=== PATIENT | female | born 1960 | race Caucasian/White ===

== ENCOUNTER → 2022-05-20 08:26 | Outpatient (BNVA) | payer MEDICARE, SELFPAY | PROVIDERS: PCP Family Medicine; Visit Provider Internal Medicine Rheumatology | DX: M19.041 Primary osteoarthritis, right hand (principal); M19.042 Primary osteoarthritis, left hand; Z79.899 Other long term (current) drug therapy; R21 Rash and other nonspecific skin eruption; M31.0 Hypersensitivity angiitis; Z11.59 Encounter for screening for other viral diseases; Z11.1 Encounter for screening for respiratory tuberculosis; M54.50 Low back pain, unspecified; M45.6 Ankylosing spondylitis lumbar region | CPT/HCPCS: 36415; 72100; 72202; 73130; 73630; 80076; 81001; 82306; 82565; 82570; 84156; 84550; 85025; 85651; 86036; 86140; 86431; 86480; 86704; 86803; 86812; 87340; 99204 ==

== ENCOUNTER → 2022-07-17 10:20 | Outpatient (BNVA) | payer MEDICARE, SELFPAY | PROVIDERS: PCP Family Medicine; Visit Provider Internal Medicine Rheumatology | DX: M05.79 Rheumatoid arthritis with rheumatoid factor of multiple sites without organ or systems involvement (principal); M19.041 Primary osteoarthritis, right hand; M19.042 Primary osteoarthritis, left hand; R21 Rash and other nonspecific skin eruption; Z79.52 Long term (current) use of systemic steroids | CPT/HCPCS: 72040; 99214 ==

== ENCOUNTER 2022-09-04 06:44 | Outpatient (CLI) | payer MEDICARE, SELFPAY ==
--- NOTE | 2022-09-04 07:15 | MR_ITS ---
WS: [id number] MRI CERVICAL SPINE NONCONTRAST HISTORY: M54.12 - Radiculopathy, cervical region COMPARISON: Cervical spine radiographs 07/17/2022 Technique: Multiplanar, multisequence noncontrast imaging of the cervical spine. Quality of this examination is limited secondary to patient motion despite repeated attempts at imagi ng. Straightening and slight reversal normal cervical lordosis. No marrow edema. Disc spaces are narrowed and desiccated with osteophytic ridging. Signal within the cervical cord is normal. Visualized posterior fossa is unremarkable. Craniocervical junction, C1 and C2 relationship, odontoid process and soft tissues are normal. C2-C3: Small central disc protrusion and facet arthritis. No stenosis. C3-C4: Osteophytic ridging and facet arthritis. Mild central and LEFT foraminal stenosis. C4-C5: Osteophytic ridging and facet arthritis. Mild central and bilateral foraminal stenosis. C5-C6: Osteophytic ridging and possible superimposed disc protrusions. Moderate facet joint arthritis . There is moderate central and foraminal stenosis. Evaluation is compromised by motion. C6-C7: Mild osteophytic ridging. There may be a component of the disc also contributing to the stenos is. Moderate central and bilateral foraminal stenosis, LEFT greater than RIGHT. C7-T1: Osteophytic ridging with mild bilateral foraminal stenosis, LEFT greater than RIGHT. Additional small RIGHT paracentral disc protrusions at T2-3 and T3-4 without central stenosis. MR/MR cervical spin wo con* [id number] IMPRESSION: 1. Quality of this examination is compromised by significant motion artifact. 2. Multilevel degenerative disc disease with facet arthritis. 3. Moderate central and bilateral foraminal stenosis at C5-6 and C6-7. Probabl y due to combination of osteophyte, facet and disc disease. 4. Mild central and LEFT foraminal stenosis at C3-4. 5. Mild central and bilateral foraminal stenosis at C4-5. 6. Mild bilateral foraminal stenosis, LEFT greater than RIGHT at C7-T1.
== END 2022-09-04 06:45 | disposition home or self-care (01) ==
LOC: RAD 06:46
PROVIDERS: PCP Family Medicine; Visit Provider Internal Medicine Rheumatology
DX: M54.12 Radiculopathy, cervical region (principal); M48.02 Spinal stenosis, cervical region
CPT/HCPCS: 72141

== ENCOUNTER → 2022-09-17 13:23 | Outpatient (BNVA) | payer MEDICARE, SELFPAY | PROVIDERS: PCP Family Medicine; Referring Provider Internal Medicine Rheumatology; Visit Provider Orthopaedic Surgery | DX: M47.22 Other spondylosis with radiculopathy, cervical region (principal); M50.23 Other cervical disc displacement, cervicothoracic region | CPT/HCPCS: 72040; 99204 ==

== ENCOUNTER 2022-10-03 12:23 | Outpatient (RCR) | payer MEDICARE, SELFPAY | END 2022-10-11 23:59 | disposition home or self-care (01) | LOC: SPT 12:23 | PROVIDERS: PCP Family Medicine; Visit Provider Orthopaedic Surgery | DX: M54.2 Cervicalgia (principal) | CPT/HCPCS: 97161 ==

== ENCOUNTER 2022-10-12 06:00 | Outpatient (RCR) | payer MEDICARE, SELFPAY | END 2022-11-10 23:59 | disposition home or self-care (01) | LOC: SPT 06:00 | PROVIDERS: PCP Family Medicine; Visit Provider Orthopaedic Surgery | DX: M54.2 Cervicalgia (principal) | CPT/HCPCS: 97110 ==

== ENCOUNTER → 2022-10-16 10:32 | Outpatient (BNVA) | payer MEDICARE, SELFPAY | PROVIDERS: PCP Family Medicine; Visit Provider Internal Medicine Rheumatology | DX: M05.79 Rheumatoid arthritis with rheumatoid factor of multiple sites without organ or systems involvement (principal); Z79.899 Other long term (current) drug therapy; R21 Rash and other nonspecific skin eruption; M19.041 Primary osteoarthritis, right hand; M19.042 Primary osteoarthritis, left hand; G62.9 Polyneuropathy, unspecified | CPT/HCPCS: 36415; 80076; 82565; 85025; 86140; 99214 ==

== ENCOUNTER → 2022-11-05 13:05 | Outpatient (BNVA) | payer MEDICARE, SELFPAY | PROVIDERS: PCP Family Medicine; Visit Provider Orthopaedic Surgery | DX: M47.22 Other spondylosis with radiculopathy, cervical region (principal) | CPT/HCPCS: 99213 ==

== ENCOUNTER → 2023-01-20 10:24 | Outpatient (BNVA) | payer MEDICARE, SELFPAY | PROVIDERS: PCP Family Medicine; Visit Provider Internal Medicine Rheumatology | DX: M05.79 Rheumatoid arthritis with rheumatoid factor of multiple sites without organ or systems involvement (principal); Z79.899 Other long term (current) drug therapy; R21 Rash and other nonspecific skin eruption; M19.041 Primary osteoarthritis, right hand; M19.042 Primary osteoarthritis, left hand; G62.9 Polyneuropathy, unspecified; Z79.52 Long term (current) use of systemic steroids | CPT/HCPCS: 36415; 80076; 82565; 85025; 86140; 99214 ==

== ENCOUNTER → 2023-04-10 15:02 | Outpatient (BNVA) | payer MEDICARE, SELFPAY | PROVIDERS: PCP Family Medicine; Visit Provider Orthopaedic Surgery | DX: M51.36 Other intervertebral disc degeneration, lumbar region (principal); M47.816 Spondylosis without myelopathy or radiculopathy, lumbar region; R93.5 Abnormal findings on diagnostic imaging of other abdominal regions, including retroperitoneum; M48.062 Spinal stenosis, lumbar region with neurogenic claudication | CPT/HCPCS: 72100; 99214 ==

== ENCOUNTER → 2023-04-21 11:01 | Outpatient (BNVA) | payer MEDICARE, SELFPAY | PROVIDERS: PCP Family Medicine; Visit Provider Internal Medicine Rheumatology | DX: M05.79 Rheumatoid arthritis with rheumatoid factor of multiple sites without organ or systems involvement (principal); Z79.899 Other long term (current) drug therapy; R21 Rash and other nonspecific skin eruption; M19.041 Primary osteoarthritis, right hand; M19.042 Primary osteoarthritis, left hand; G62.9 Polyneuropathy, unspecified | CPT/HCPCS: 99214 ==

== ENCOUNTER 2023-05-09 10:57 | Outpatient (CLI) | payer MEDICARE, SELFPAY ==
--- NOTE | 2023-05-09 11:45 | MR_ITS ---
WS: [id number] MRI LUMBAR SPINE NONCONTRAST TECHNIQUE: Sagittal T1, T2 and STIR imaging. Axial T1 and T2 imaging. CLINICAL INFORMATION: lumbar pain COMPARISON: None. FINDINGS: Partially visualized RIGHT abdominal mass likely a renal lesion only seen on the core maker helper imaging measur ing 12.3 x 11.8 cm. Recommend contrast-enhanced CT abdomen pelvis for further evaluation. Mild lumbar curve. No acute compression. Slight retrolisthesis L3 on L4. Disc space narrowing worse a t L4-5 with laminectomy defects. L1-L2: Normal. L2-L3: Mild annular bulging. Mild facet arthropathy. Spinal canal and foramen are patent. L3-L4: Slight retrolisthesis. Mild annular bulging with impingement on the RIGHT subarticular recess and traversing RIGHT L4 nerve root. Mild central canal stenosis. Mild RIGHT foraminal narrowing. Mode rate facet arthropathy with ligamentum flavum hypertrophy. L4-L5: Disc space narrowing. Mild disc bulge and osteophytic ridging. Laminectomy defects. Mild facet arthropathy. Spinal canal is patent. Foramen are patent. L5-S1: Slight retrolisthesis. Slight narrowing RIGHT subarticular recess. Spinal canal and foramen ar e patent. Mild facet arthropathy. Visualized pelvic bony structures: Normal. Paravertebral soft tissues: Normal. IMPRESSION: 1. Partially visualized RIGHT abdominal mass likely a renal lesion only seen on the core maker helper imaging m easuring 12.3 x 11.8 cm. Recommend contrast-enhanced CT abdomen pelvis for further evaluation. 2. Mild lumbar curve. No acute compression. 3. Slight retrolisthesis L3 on L4 with mild central canal stenosis. Impingement on the traversing RI GHT L4 nerve root in the subarticular recess. 4. Mild RIGHT L3-4 foraminal narrowing. 5. Prior laminectomy defects L4-5. 6. Narrowing RIGHT subarticular recess L5-S1 with slight impingement RIGHT S1 nerve root. 7. Small disc protrusions in the upper thoracic spine on the core maker helper imaging. These are more prominent at T2-T4.
== END 2023-05-09 10:58 | disposition home or self-care (01) ==
LOC: RAD 10:57
PROVIDERS: PCP Family Medicine; Visit Provider Orthopaedic Surgery
DX: M48.061 Spinal stenosis, lumbar region without neurogenic claudication (principal); R19.09 Other intra-abdominal and pelvic swelling, mass and lump; M43.16 Spondylolisthesis, lumbar region; M51.24 Other intervertebral disc displacement, thoracic region
CPT/HCPCS: 72148

== ENCOUNTER → 2023-05-13 09:57 | Outpatient (BNVA) | payer MEDICARE, SELFPAY | PROVIDERS: PCP Family Medicine; Visit Provider Orthopaedic Surgery | DX: Z01.812 Encounter for preprocedural laboratory examination (principal); M48.062 Spinal stenosis, lumbar region with neurogenic claudication | CPT/HCPCS: 36415; 80053; 81003; 85025; 99214 ==

== ENCOUNTER 2023-05-30 12:13 | Day surgery (SDC) | payer MEDICARE, SELFPAY ==
[2023-05-30] VITALS (9 sets, daily range): BP systolic 130–161; BP diastolic 80–96; PULSE 68–82; RESP 12–20; TEMP 36.5–36.9; O2SAT 91–96; BMI 35.6
[2023-05-30 13:14] LABS: Glucose Point of Care 127 mg/dL (70-110)
[2023-05-30] MEDS: sodium chloride 0.9% 1,000 ML 30 ML IV (13:29)
--- NOTE | 2023-05-30 13:35 | W.PM.OPSUD ---
Surgery/Procedure H&P Update DATE OF PROCEDURE: May 30, 2023 DATE H&P PERFORMED: 05/23/23 H&P UPDATE INFORMATION: I have reviewed H&P completed within last 30 days, I have examined patient prior to procedure and No changes to prior documentation PREOP DIAGNOSIS: Lumbar stenosis with neurogenic claudication PLANNED PROCEDURE: Operation Date: 05/30/23 13:55 Proposed Procedures p Right L3/4,L5/S1 minimally invasiveLumbar Spine Decompression(Right) - Gabriel Gardiner DO
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
[2023-05-30] MEDS: ceFAZolin 2,000 MG in sodium chloride 0.9% (plus) 50 ML 100 MG IV (14:07)
[2023-05-30] MEDS: lidocaine-epi 2% 20 mL INJ INJECTION (14:30)
--- NOTE | 2023-05-30 15:29 | PM.OP ---
Operative Report Date of procedure: May 30, 2023 Pre-op diagnosis: Lumbar stenosis with neurogenic claudication Post-op diagnosis: same Procedure done: 1. L3-4 laminectomy with partial facetectomy 2. L5-S1 laminectomy with partial facetectomy Surgeon: Gabriel Gardiner DO Aggregate Conveyor Operator: Kwaku Shahid Aggregate Conveyor Operator: The surgical forceps fabricator, Kwaku Shahid, NIGEL was needed for his expertise under the microscope. He was important and necessary throughout the procedure to complete in a safe and timely manner. He assisted with patient positioning prepping and draping tissue retraction suctioning of the operative field protection of the dural sac and tissue closure Estimated blood loss (mL): 15 Procedure: 1. L3-4 laminectomy with partial facetectomy 2. L5-S1 laminectomy with partial facetectomy Patient is brought to the operative suite. After undergoing anesthesia they are placed in the prone position. All areas of impingement are well padded. Patient is then prepped and draped in the normal sterile fashion. A skin incision is made over the L3/4 level. This is confirmed under c-arm guidance. A series of dilators are passed and the tubular retractor is docked on the L3 lamina. A bovie is used to clear the soft tissue off the lamina and the L 3/4 facet joint. A high speed manuelito is then used to perform the laminectomy and take down the medial aspect of the L 3/4 facet joint. A kerrison rongeure was then used to take down the remaining lamina and smooth the edge of the laminectomy up to the point where the ligamentum flavum attaches. Attention was then brought to the medial aspect of the facet joint. The remaining medial aspect of the superior and inferior aspect of the facet joint were taken down with the kerrison from the pedicle of L3 to L 4. The facet joint had significant hypertrophy. Attention was then brought to the Ligamentum Flavum. The ligament was taken down from the lamina of L3 to L4 and out medially to the remaining facet joint. The ligament was thick. The dura was then exposed. The dura was in good repair. The L3 nerve was then traced with a curette out the L3/4 foramen and found to be adequately decompressed. The L4 nerve was traced with a curette around the L4 pedicle. The lateral recess was opened with a kerrison helping to further decompress the L4 nerve. Wound is then irrigated copiously with saline and surgiflo is used to stop any bleeding. The tubular retractor is removed and the A skin incision is made over the L5/S1 level. This is confirmed under c-arm guidance. A series of dilators are passed and the tubular retractor is docked on the L5 lamina. A bovie is used to clear the soft tissue off the lamina and the L 5/S1 facet joint. A high speed manuelito is then used to perform the laminectomy and take down the medial aspect of the L 5/S1 facet joint. A kerrison rongeure was then used to take down the remaining lamina and smooth the edge of the laminectomy up to the point where the ligamentum flavum attaches. Attention was then brought to the medial aspect of the facet joint. The remaining medial aspect of the superior and inferior aspect of the facet joint were taken down with the kerrison from the pedicle of L5 to S1. The facet joint had significant hypertrophy. Attention was then brought to the Ligamentum Flavum. The ligament was taken down from the lamina of L5 to S1 and out medially to the remaining facet joint. The ligament was thick. The dura was then exposed. The dura was in good repair. The L5 nerve was then traced with a curette out the L5/S1 foramen and found to be adequately decompressed. The S1 nerve was traced with a curette around the S1 pedicle. The lateral recess was opened with a kerrison helping to further decompress the S1 nerve. Wound is then irrigated copiously with saline and surgiflo is used to stop any bleeding. The tubular retractor is removed and the wound is closed with vicryl and monocryl suture. Glue is then used to protect the wound. A sterile dressing is then placed. Patient was then placed in the supine position and transferred to the PACU in stable condition.
--- NOTE | 2023-05-30 15:46 | XR_ITS ---
WS: [id number] INTRAOPERATIVE TECHNIQUE: 4 Spot fluoroscopic images for intraoperative purposes. FLUOROSCOPY TIME: 39.4 seconds CLINICAL INFORMATION: OR PICS COMPARISON: None. FINDINGS: Localization marker projected over L4-L5 and L5-S1. IMPRESSION: Images obtained for intraoperative purposes..
[2023-05-30] MEDS: HYDROcodone-acetaminophen 5-325 mg Tablet 2 TAB PO (16:15)
--- NOTE | 2023-05-30 17:10 | ANE.PACU2 ---
Inpatient post-anesthesia follow up: Airway intact: Yes Vital signs: Temperature 98.0 F Pulse Rate 77 Respiratory Rate 16 Blood Pressure 141/86 Pulse Oximetry 95 Oxygen Delivery Me thod Room Air Oxygen Flow Rate Fraction of Inspir ed Oxygen Hydration adequate: Yes Nausea and vomiting: No Pain level: 1 Mental status: Baseline
--- NOTE | 2023-05-30 17:20 | SUR.PHASEII ---
17:00 ROM AND SENSATION ALL 4 EXTREMITIES.
== END 2023-05-30 17:10 | disposition home or self-care (01) ==
PROVIDERS: PCP Family Medicine; Visit Provider Orthopaedic Surgery
PROC: (CPT 63005; principal; 2023-05-30 13:55)
DX: M48.062 Spinal stenosis, lumbar region with neurogenic claudication (principal); J44.9 Chronic obstructive pulmonary disease, unspecified; I10 Essential (primary) hypertension; K21.9 Gastro-esophageal reflux disease without esophagitis; E11.9 Type 2 diabetes mellitus without complications; E66.01 Morbid (severe) obesity due to excess calories; Z68.35 Body mass index [BMI] 35.0-35.9, adult
CPT/HCPCS: 63047; 63048; 36416; 72100; 76000; 82962; J0690; J1100; J2405; J2704; J3010; J3490; J7030

== ENCOUNTER → 2023-06-12 14:12 | Outpatient (BNVA) | payer MEDICARE, SELFPAY | PROVIDERS: PCP Family Medicine; Visit Provider Physician Assistant | DX: Z47.89 Encounter for other orthopedic aftercare (principal) | CPT/HCPCS: 99024 ==

== ENCOUNTER → 2023-07-01 09:51 | Outpatient (BNVA) | payer MEDICARE, SELFPAY | PROVIDERS: PCP Family Medicine; Visit Provider Orthopaedic Surgery | DX: Z47.89 Encounter for other orthopedic aftercare | CPT/HCPCS: 72100; 99024 ==

== ENCOUNTER → 2023-08-05 13:28 | Outpatient (BNVA) | payer MEDICARE, SELFPAY | PROVIDERS: PCP Family Medicine; Visit Provider Orthopaedic Surgery | DX: Z47.89 Encounter for other orthopedic aftercare (principal); M17.11 Unilateral primary osteoarthritis, right knee; M16.11 Unilateral primary osteoarthritis, right hip | CPT/HCPCS: 72100; 73502; 73562; 99214 ==

== ENCOUNTER → 2023-08-12 10:30 | Outpatient (BNVA) | payer MEDICARE, SELFPAY | PROVIDERS: PCP Family Medicine; Visit Provider Internal Medicine Rheumatology | DX: M05.79 Rheumatoid arthritis with rheumatoid factor of multiple sites without organ or systems involvement (principal); R53.1 Weakness; R29.898 Other symptoms and signs involving the musculoskeletal system; Z98.890 Other specified postprocedural states; R21 Rash and other nonspecific skin eruption; M19.041 Primary osteoarthritis, right hand; M19.042 Primary osteoarthritis, left hand; G62.89 Other specified polyneuropathies | CPT/HCPCS: 80076; 82085; 82550; 82565; 85025; 85651; 86140; 99214 ==

== ENCOUNTER → 2023-08-18 14:33 | Outpatient (BNVA) | payer MEDICARE, SELFPAY | PROVIDERS: PCP Family Medicine; Visit Provider Internal Medicine Rheumatology | DX: Z71.89 Other specified counseling; M25.551 Pain in right hip | CPT/HCPCS: 20610; J1030 ==

== ENCOUNTER 2023-09-18 13:00 | Outpatient (RCR) | payer MEDICARE, SELFPAY | END 2023-10-12 23:59 | disposition home or self-care (01) | LOC: SPT 13:00 | PROVIDERS: PCP Family Medicine; Visit Provider Internal Medicine Rheumatology | DX: M62.81 Muscle weakness (generalized) (principal); R26.89 Other abnormalities of gait and mobility | CPT/HCPCS: 97110; 97161 ==

== ENCOUNTER 2023-10-13 06:00 | Outpatient (RCR) | payer MEDICARE, SELFPAY | END 2023-10-29 23:59 | disposition home or self-care (01) | LOC: SPT 06:00 | PROVIDERS: PCP Family Medicine; Visit Provider Internal Medicine Rheumatology | DX: M62.81 Muscle weakness (generalized) (principal); R26.89 Other abnormalities of gait and mobility | CPT/HCPCS: 97110 ==

== ENCOUNTER → 2023-12-02 10:42 | Outpatient (BNVA) | payer MEDICARE, SELFPAY | PROVIDERS: PCP Family Medicine; Visit Provider Internal Medicine Rheumatology | DX: M05.79 Rheumatoid arthritis with rheumatoid factor of multiple sites without organ or systems involvement (principal); Z79.899 Other long term (current) drug therapy; R21 Rash and other nonspecific skin eruption; M19.041 Primary osteoarthritis, right hand; M19.042 Primary osteoarthritis, left hand; G62.89 Other specified polyneuropathies | CPT/HCPCS: 36415; 80076; 82565; 85025; 86140; 99214 ==

== ENCOUNTER → 2024-03-23 13:59 | Outpatient (BNVA) | payer MEDICARE, SELFPAY | PROVIDERS: PCP Family Medicine; Visit Provider Internal Medicine Rheumatology | DX: R21 Rash and other nonspecific skin eruption (principal); M19.041 Primary osteoarthritis, right hand; M19.042 Primary osteoarthritis, left hand; M05.79 Rheumatoid arthritis with rheumatoid factor of multiple sites without organ or systems involvement; M54.12 Radiculopathy, cervical region; G62.89 Other specified polyneuropathies | CPT/HCPCS: 36415; 80076; 82565; 85025; 85651; 86140; 99214 ==

== ENCOUNTER → 2024-05-27 13:07 | Outpatient (BNVA) | payer MEDICARE, SELFPAY | PROVIDERS: PCP Family Medicine; Referring Provider Internal Medicine Rheumatology; Visit Provider Specialist | DX: G56.03 Carpal tunnel syndrome, bilateral upper limbs (principal) | CPT/HCPCS: 95910 ==

== ENCOUNTER → 2024-08-03 13:38 | Outpatient (BNVA) | payer MEDICARE, SELFPAY | PROVIDERS: PCP Family Medicine; Visit Provider Internal Medicine Rheumatology | DX: M05.79 Rheumatoid arthritis with rheumatoid factor of multiple sites without organ or systems involvement (principal); R21 Rash and other nonspecific skin eruption; M19.041 Primary osteoarthritis, right hand; M19.042 Primary osteoarthritis, left hand; G62.89 Other specified polyneuropathies | CPT/HCPCS: 99214 ==

== ENCOUNTER 2024-09-07 10:42 | Outpatient (CLI) | payer MEDICARE, SELFPAY ==
[2024-09-07 11:14] LABS: Basophils # 0.1 10^3/uL (0.0-0.1); Basophils % 0.7 %; Eosinophils # 0.3 10^3/uL (0.0-0.8); Eosinophils % 3.1 %; Hematocrit 39.5 % (36-47); Lymphocytes # 2.2 10^3/uL (0.8-4.8); Lymphocytes % 22.9 %; Mean Corpuscular HGB Conc 31.9 g/dL (30-55); Mean Corpuscular Hemoglobin 31.7 pg (27-33); Mean Corpuscular Volume 99.2 fl (85-98); Mean Platelet Volume 11.6 fL (7.4-10.4); Monocytes # 1.1 10^3/uL (0.2-0.9); Monocytes % 11.5 %; Neutrophils # 5.81 10^3/uL (1.8-7.7); Neutrophils % 61.4 %; Nucleated Red Blood Cells % 0 %; Platelet Count 240 10^3/cmm (157-399); Red Blood Count 3.98 10^6/uL (3.85-5.65); Red Cell Distribution Width 13.4 % (12.1-15.1); White Blood Count 9.47 10^3/uL (3.29-11.43)
[2024-09-07 11:17] LABS: Erythrocyte Sedimentation Rate 10 mm/hr (0-15)
[2024-09-07 11:27] LABS: Alanine Aminotransferase 19 U/L (0-33); Albumin Level 4.3 g/dL (3.5-5.2); Alkaline Phosphatase 61 U/L (35-105); Aspartate Amino Transferase 24 U/L (0-32); Globulin 2.3 g/dL (1.3-4.6); Glomerular Filtration Rate 124.2 mL/min (90-130); Total Bilirubin 0.5 mg/dL (0.15-1.2); Total Protein 6.6 g/dL (6.6-8.7)
== END 2024-09-07 10:43 | disposition home or self-care (01) ==
LOC: LAB 10:44
PROVIDERS: PCP Family Medicine; Visit Provider Internal Medicine Rheumatology
DX: M05.79 Rheumatoid arthritis with rheumatoid factor of multiple sites without organ or systems involvement (principal)
CPT/HCPCS: 36415; 80076; 82565; 85025; 85651; 86140

== ENCOUNTER → 2024-11-09 14:52 | Outpatient (BNVA) | payer MEDICARE, SELFPAY | PROVIDERS: PCP Family Medicine; Visit Provider Internal Medicine Rheumatology | DX: R21 Rash and other nonspecific skin eruption (principal); Z79.899 Other long term (current) drug therapy; M25.561 Pain in right knee; M19.041 Primary osteoarthritis, right hand; M19.042 Primary osteoarthritis, left hand; M05.79 Rheumatoid arthritis with rheumatoid factor of multiple sites without organ or systems involvement; G62.89 Other specified polyneuropathies | CPT/HCPCS: 36415; 73562; 80076; 82565; 83036; 85025; 85651; 86140; 99214 ==

== ENCOUNTER → 2025-03-24 13:24 | Outpatient (BNVA) | payer MEDICARE, SELFPAY | PROVIDERS: PCP Family Medicine; Visit Provider Internal Medicine Rheumatology | DX: R21 Rash and other nonspecific skin eruption (principal); Z79.899 Other long term (current) drug therapy; M19.041 Primary osteoarthritis, right hand; M19.042 Primary osteoarthritis, left hand; M05.79 Rheumatoid arthritis with rheumatoid factor of multiple sites without organ or systems involvement; G62.89 Other specified polyneuropathies; M81.0 Age-related osteoporosis without current pathological fracture | CPT/HCPCS: 99214 ==